=== PATIENT | female | born 1985 | race Caucasian/White ===

== ENCOUNTER 2019-03-16 02:40 | Inpatient (IN) | payer BC ==
[2019-03-16] MEDS ORDERED: Ondansetron INJ* 2 MG/ML VIAL ONE ×2 (02:46→04:48)
--- NOTE | 2019-03-16 02:46 | ED ---
Adult Trauma - HPI Summary HPI Summary: A 33 y/o F brought in by ambulance presents to ED with multiple lacs to bilateral wrists onset 0 yesterday as suicide attempt. Patient additionally took 15 Excedrin migraine pills at 2030 yesterday. Patient called 911 at 0130 this date. She cut her wrists with a clean double-sided razorblade. She was leaning on the wall and laid down. She's unsure if she had LOC or simply got sleepy. Her depression has worsened since October, and worsened more so this week. She is not sleeping well, is tired. She does not see a counselor. Her last tetanus was in 2010 or 2011. Patient is R-hand dominant. Moderate ETOH drinker, denies ETOH yesterday or tonight. [facility]: 03/07/19. PMHx: generalized anxiety and depression. Denies DM. Per EMS: Patient may have lost 1.5-2 L of blood. - History of Current Complaint Stated Complaint: "941/SI" PER POLICE Hx Obtained From: Patient, EMS Hx Last Menstrual Period: 08/02/18 Mechanism of Injury: Incised Loss of Consciousness: unsure Onset/Duration: Started Hours Ago, Traumatic, Still Present Onset of Pain: Immediate, Prior to Arrival Onset Severity: Severe Current Severity: Severe Location: Extremities - bilat UE Associated Signs & Symptoms: Positive: Significant Blood Loss, Other: - pos: suicide attempt, sleeping disturbance, fatigue - Allergy/Home Medications Allergies/Adverse Reactions: Allergies Allergy/AdvReac Type Severity Reaction Status Date / Time cefaclor [From [facility]] Allergy Hives Verified 08/02/18 07:44 Home Medications: Home Medications Ferrous Gluconate 27 mg PO DAILY 03/16/19 [History Confirmed 03/16/19] Probiotic 1 cap PO DAILY WITH MEAL 03/16/19 [History Confirmed 03/16/19] PMH/Surg Hx/FS Hx/Imm Hx Previously Healthy: No Endocrine/Hematology History: Denies: Hx Diabetes Psychiatric History: Reports: Hx Anxiety, Hx Depression - Surgical History Surgery Procedure, Year, and Place: wisdom tooth removal Infectious Disease History: Reports: History Other Infectious Disease - HSV - Family History Known Family History: Positive: Diabetes - Social History Occupation: Employed Full-time Lives: Alone Alcohol Use: Occasionally Hx Substance Use: No Substance Use Type: Reports: None Hx Tobacco Use: Yes Smoking Status (MU): Former Smoker Review of Systems Positive: Fatigue Positive: Other - pos: sig blood loss Skin: Other - pos: lacs to bilat UE Psychological: Other - pos: SI, sleep disturbances All Other Systems Reviewed And Are Negative: Yes Physical Exam - Summary Physical Exam Summary: Appearance: Well appearing, no pain distress Skin: warm, dry, reflects adequate perfusion. Dorsal L forearm has a 4 cm lac. There is a 1.5 cm lac on radial L wrist. There is a 3 cm lac on volar proximal L forearm. Mid-R forearm has a 4 cm lac and the R radial wrist has a 1.7 cm. lac. Head/face: normal Eyes: EOMI, DEVORAH ENT: mucous membranes moist Neck: supple, non-tender Respiratory: CTA, breath sounds present Cardiovascular: RRR, pulses symmetrical Abdomen: non-tender, soft Bowel Sounds: present Musculoskeletal: normal, strength/ROM intact. Intact to light touch and moving 2 -point discrimination on R and L hands. Neuro: normal, sensory motor intact, A&Ox3 Triage Information Reviewed: Yes Vital Signs Reviewed: Yes Procedures - Procedure Summary Procedure Summary: LUE Laceration Repairs: Lido 1% with epi used. L volar forearm linear lac approx 3 cm 4 gerhard. L radial wrist linear lac approx 1.5 cm 5 gerhard. L dorsal forearm linear lac approx 4 cm 6 gerhard. No deeper structures were involved. Sterile dressings applied. RUE Laceration Repairs: Lido 1% with epi used. R mid-forearm linear lac approx 4 cm 5 gerhard. R radial wrist linear lac approx 1.7 cm 4 gerhard. No deeper structures were involved. Sterile dressings applied. Diagnostics - Laboratory Result Diagrams: 03/16/19 03:06 03/16/19 03:06 Lab Statement: Any lab studies that have been ordered have been reviewed, and results considered in the medical decision making process. - EKG 03:29 Cardiac Rate: NL - 88 bpm EKG Rhythm: Sinus Rhythm Summary of EKG Findings: Normal axis, nml interval, nml ST. Adult Trauma Course/Dx - Course Course Of Treatment: Nurse's notes reviewed. 04:10: Per poison control: Levels are non-toxic and they have no further recommendations. Patient's levels for Tylenol, salicylates are nontoxic. Her lacerations were cleaned and repaired. She was given IV clindamycin for the wounds. Her tetanus was updated. Patient is medically clear for [facility] at 04:12. Per escalator attendant: Per Dr. Solorio, psych, patient will be a voluntary admission. Dx: depression, suicide attempt. Assessment/Plan: Recommended to continue clindamycin 300 mg 3 times daily for total of 7 days. Gerhard to come out in 10 days' time. Recommend to mental health to recheck a CBC at midday today or Monday morning. - Diagnoses Differential Diagnosis/HQI/PQRI: Positive: Other - Tendon laceration, infected wounds, hypertension, blood loss anemia Provider Diagnoses: Depression, Suicidal ideation, Misuse of [id number] medications, Multiple lacerations - Critical Care Time Critical Care Time: 30-74 min - Critical care time is exclusive of separately billable procedures Discharge - Sign-Out/Discharge Documenting (check all that apply): Patient Departure - U Patient Received Moderate/Deep Sedation with Procedure: No - Discharge Plan Condition: Fair Disposition: PSYCHIATRIC FACILITY-OTHER Referrals: Dayami Rahman MD [Medical Doctor] - - Billing Disposition and Condition Condition: FAIR Disposition: Psychiatric Facility Other - Attestation Statements Document Initiated by Scribe: Yes Documenting Scribe: Kamari Dooley Provider For Whom Jodie is Documenting (Include Credential): Dr. Jose Martin Norwood MD Scribe Attestation: Kamair Maldonado, scribed for Dr. Jose Martin Norwood MD on 03/16/19 at 0612. Scribe Documentation Reviewed: Yes Provider Attestation: The documentation as recorded by the Kamari rodriguez accurately reflects the service I personally performed and the decisions made by me, Dr. Jose Martin Norwood MD Status of Scribe Document: Viewed
[2019-03-16] MEDS ORDERED: Lidocaine 1% MPF wEPI 200,000* 30 ML SDV INJ ONE (02:53)
[2019-03-16] MEDS ORDERED: Tetan/Diph/Pertus SYR(Tdap)* 0.5 ML SYR(BOOSTRIX) use SYR IM ONE (02:53)
[2019-03-16] MEDS ORDERED: Clindamycin 600 MG/D5W BAG(*) 600 MG/50 ML BAG IV ONE (02:53)
[2019-03-16 03:13] LABS: ABS Lymphocytes 0.9 10^3/ul (1.0-4.8); ABS Monocytes 0.3 10^3/ul (0-0.8); ABS Neutrophils 10.1 10^3/ul (1.5-7.7); Hematocrit 36 % (35-47); Hemoglobin 11.8 g/dL (12.0-16.0); Lymphocyte % 7.6 %; Mean Corpuscular HGB Conc 33 g/dL (31-36); Mean Corpuscular Hemoglobin 29 pg (27-31); Mean Corpuscular Volume 88 fL (80-97); Mean Platelet Volume 8.6 fL (7.4-10.4); Platelet Count 243 10^3/uL (150-450); Red Blood Count 4.09 10^6 /uL (3.70-4.87); Red Cell Distribution Width 12 % (10-15); White Blood Count 11.2 10^3/uL (3.5-10.8)
[2019-03-16 03:28] LABS: ALT 11 U/L (7-52); AST 15 U/L (13-39); Albumin/Globulin Ratio 1.8 (1-3); Alkaline Phosphatase 26 U/L (34-104); Anion Gap 12 mmol/L (2-11); BUN/Creatinine Ratio 10.3 (8-20); Blood Urea Nitrogen 7 mg/dL (6-24); CO2 Carbon Dioxide 20 mmol/L (22-32); Calcium 7.9 mg/dL (8.6-10.3); Chloride 104 mmol/L (101-111); EGFR African American 119.8 (>60); Globulin 2.2 g/dL (2-4); Glucose 137 mg/dL (70-100); Potassium 3.3 mmol/L (3.5-5.0); Sodium 136 mmol/L (135-145); Total Protein 6.2 g/dL (6.4-8.9)
[2019-03-16 03:35] LABS: HCG Pregnancy < 0.60 mIU/mL
[2019-03-16 03:47] LABS: Acetaminophen 43 mcg/mL; Alcohol < 10 mg/dL (<10)
--- OUTSIDE RECORDS SUMMARY | 2019-03-16 03:57 | XMS REPORT | Continuity of Care Document ---
:1985 External Reference #:[id number] Author Name Betsy Santos NP Address [address] [place] [address] Care Team Providers Name Role Phone Hailee Rodriguez M.D. Care Team Information Collection Administrator Unavailable Hailee Rodriguez M.D. Primary Care Physician Unavailable Payers Date Identification Numbers Payment Provider Subscriber Policy Number: [id number] [place] Plan Betsy Ortega PayID: [id number] [address] [place] [address] Advance Directives Description No Information Available Problems Active Problems Provider Date Bipolar disorder Hailee Rodriguez M.D. Onset: 10/13/2014 Family History Date Family Member(s) Observation Comments Father Hypertension Onset: Father 64 (09/26/2018) Father Hypercholesterolemia Father Melanoma Mother Colitis Mother 62 Mother Skin Cancer pre-cancerous Siblings 1 First Sister Hypertension First Sister 36 First Sister Hypercholesterolemia First Sister prediabetis Paternal Grandfather due to Diabetes () - 89 yo Paternal Grandfather due to Hypertension () Paternal Grandfather due to stomach cancer () Paternal Grandmother Alzheimer's Disease Paternal Grandmother 82 Maternal Grandfather Arthritis Maternal Grandfather 93 Maternal Grandfather heart problems Maternal Grandmother due to Alzheimer's () - 87 yo Disease Social History Type Date Description Comments Sex Unknown Marital Status Legal Status: Never in long distance relationship Occupation Works in [employer] at [employer] No history of abuse Cigarette Use Uses an E cigarette almost off ETOH Use Occasionally consumes alcohol Recreational Drug Use Denies Drug Use Tobacco Use Start: Unknown Patient is a former still with occ e End: Unknown smoker cigarrette Exercise Type/Frequency Exercises regularly walking Sun Exposure Minimum amount of sun exposure Seat Belt/Car Seat Always uses seat belt Allergies, Adverse Reactions, Alerts Active Allergies Reaction Severity Comments Date Ceclor severe hives 07/26/2013 Augmentin hives 07/26/2013 Medications Active Medications SIG Qnty Indications Ordering Date Provider Clindamycin insert one 80gm N76.0 Betsy Cosby 02/19/2019 Phosphate applicatorful DILLAN Santos 2% Cream vaginally every night for 6 consectutive nights Fluconazole one tab by mouth 2tabs N76.0 Betsy Cosby 02/19/2019 150mg once, may repeat in DILLAN Santos Tablets five days Valacyclovir HCL 1 by mouth every day 90tabs Betsy Cosby DILLAN Santos 500mg Tablets Fluticasone 2 sprays each 16gm Betsy Cosby Propionate nostril every night DILLAN Santos 50mcg/Act at bedtime Suspension Azelastine HCL 1-2 sprays each 30ml Betsy Cosby (Nasal) nostril twice a day DILLAN Santos 137mcg/[place] Solution Excedrin Migraine 2 tablets every 8 Unknown hours as needed for Tablets headache Ibuprofen 200 2 by mouth every 12 Unknown 200mg hours as needed Tablets Multivitamin Gummies 1 by mouth every day Unknown Womens Chewtabs History Medications Acetaminophen-Codeine #3 take one or 2 as 20tabs J11.89 Betsy Cosby 2018 - 300-30mg one dose at DILLAN Santos 02/19/2019 Tablets bedtime. Benzonatate take one by mouth 30caps J11.89 Betsy Cosby 11/07/2018 - 200mg Capsules 3 times daily as DILLAN Santos 02/19/2019 needed for cough Tizanidine HCL take one or two 30caps M26.602 Betsy Cosby 09/26/2018 - 2mg Capsules by mouth three DILLAN Santos 02/19/2019 times daily as needed for pain Azithromycin 2 tabs today, 6tabs 461.9 Hailee Rodriguez, 05/25/2015 - 250mg Tablets then 1 tab daily M.D. 06/03/2015 for next 4 days Metronidazole 1 po bid x 7 14tabs 616.10 Angie 01/28/2015 - 500mg Tablets days Melanie, 02/04/2015 Afnp-C Fluconazole 1 by mouth ; february 2tabs 616.10 Angie 01/28/2015 - 150mg Tablets repeat in 5-7 Melanie, 02/04/2015 days Afnp-C No Active Medications Unknown 12/30/2014 - 12/30/2014 Nasonex 2 sprays each 1units 381.81 Milena 12/30/2014 - 50mcg/Act Suspension nostril every day [facility], 09/25/2018 Afnp-C Excuse excuse 10/21/14 079.99 Hailee Rodriguez, 10/22/2014 - until fever free M.D. 12/29/2014 x 24hours No Active Medications Unknown 10/13/2014 - 10/22/2014 Metronidazole 1 po bid x 7 14tabs Anh Ackerman, 09/15/2014 - 500mg Tablets days BUCK SWAMPER 10/13/2014 Fluconazole 1 po x 1 1tabs Anh Ackerman, 09/15/2014 - 150mg Tablets BUCK SWAMPER 09/16/2014 No Active Medications Unknown 05/13/2014 - 09/15/2014 Metronidazole 1 po bid x 7 14tabs Anh Ackerman, 05/06/2014 - 500mg Tablets days BUCK SWAMPER 05/13/2014 Fluconazole 1 po today and 2tabs Anh Ackerman, 05/06/2014 - 150mg Tablets repeat in a week BUCK SWAMPER 05/13/2014 No Active Medications Unknown 05/03/2014 - 05/06/2014 Metrogel-Vaginal 1 applicatorful 70gm Anh Ackerman, 04/28/2014 - 0.75% Gel pv hs x 5 days BUCK SWAMPER 05/03/2014 Nystatin/Triamcinolone apply to affected 30gm 616.10 Anh Ackerman, 2013 - area sparingly BUCK SWAMPER 04/30/2014 146134-9.1Unit/GM-% Cream bid prn Fluconazole 1 po x 1 1tabs 616.10 Anh Ackerman, 04/23/2014 - 150mg Tablets BUCK SWAMPER 04/24/2014 No Active Medications Unknown 02/19/2014 - 02/19/2014 Physical Therapy evaluate and 724.1 Anh Ackerman, 02/19/2014 - treat neck and BUCK SWAMPER 04/07/2014 thoracic back pain Orphenadrine Citrate ER 1 po bid prn for 20tabs 724.1 Anh Ackerman, 2013 - 100mg spasm BUCK SWAMPER 04/07/2014 Tablets ER 12HR Abilify 1/2 po qhs 30tabs Unknown - 5mg Tablets 02/19/2014 Dexamethasone Sodium 3-5 drops left Unknown - Phosphate/Sodium Chloride ear prn 02/19/2019 0.1 Solution Tretinoin apply every at Unknown - 0.05% Cream bedtime to 02/19/2019 affected area Metronidazole apply nightly to Unknown - 1% Gel face as directed. 02/19/2019 Immunizations CPT Code Status Date Vaccine Lot # [id number] Given 07/20/2018 Influenza Vac, Quadriv[place], [place] [id number] Given 10/13/2014 Influenza Vac, Quadrivalent, Slit Virus, Im [id number] Vital Signs Date Vital Result Comment 02/19/2019 9:19am BP Systolic 118 mmHg BP Diastolic 78 mmHg Heart Rate 76 /min Body Temperature 98.0 F Respiratory Rate 16 /min Weight 153.00 lb 11/07/2018 1:49pm BP Systolic 118 mmHg BP Diastolic 68 mmHg Heart Rate 80 /min Body Temperature 99.8 F Respiratory Rate 20 /min Weight 154.00 lb 09/26/2018 6:27pm BP Systolic 120 mmHg BP Diastolic 86 mmHg Heart Rate 84 /min Body Temperature 98.6 F Height 65 inches 5'5" Weight 154.00 lb BMI (Body Mass Index) 25.6 kg/m2 06/03/2015 8:10am BP Systolic 110 mmHg BP Diastolic 68 mmHg Heart Rate 68 /min Body Temperature 98.1 F Height 65 inches 5'5" Weight 149.00 lb BMI (Body Mass Index) 24.8 kg/m2 05/25/2015 10:37am BP Systolic 120 mmHg BP Diastolic 74 mmHg Heart Rate 84 /min Body Temperature 98.5 F Respiratory Rate 18 /min O2 % BldC Oximetry 96 % Height 65 inches 5'5" Weight 148.00 lb BMI (Body Mass Index) 24.6 kg/m2 02/24/2015 3:13pm BP Systolic 122 mmHg BP Diastolic 68 mmHg Heart Rate 62 /min Body Temperature 97.8 F Respiratory Rate 16 /min Height 65 inches 5'5" Weight 143.00 lb BMI (Body Mass Index) 23.8 kg/m2 01/28/2015 9:27am BP Systolic 120 mmHg BP Diastolic 82 mmHg Heart Rate 64 /min Body Temperature 98.6 F Respiratory Rate 16 /min Height 65 inches 5'5" Weight 144.12 lb BMI (Body Mass Index) 24.0 kg/m2 12/30/2014 2:09pm BP Systolic 112 mmHg BP Diastolic 68 mmHg Heart Rate 72 /min Body Temperature 97.5 F Height 65 inches 5'5" Weight 144.50 lb BMI (Body Mass Index) 24.0 kg/m2 10/22/2014 10:43am BP Systolic 118 mmHg BP Diastolic 60 mmHg Heart Rate 84 /min Body Temperature 100.0 F Respiratory Rate 16 /min Height 65 inches 5'5" 10/13/2014 1:45pm BP Systolic 110 mmHg BP Diastolic 66 mmHg Heart Rate 68 /min Body Temperature 97.2 F Respiratory Rate 16 /min Height 65 inches 5'5" Weight 145.00 lb BMI (Body Mass Index) 24.1 kg/m2 09/11/2014 8:10am BP Systolic 100 mmHg BP Diastolic 60 mmHg Heart Rate 68 /min Body Temperature 99.1 F Respiratory Rate 16 /min Height 65 inches 5'5" Weight 142.12 lb BMI (Body Mass Index) 23.6 kg/m2 05/20/2014 4:18pm BP Systolic 114 mmHg BP Diastolic 82 mmHg Heart Rate 84 /min Body Temperature 97.5 F Respiratory Rate 16 /min Height 65 inches 5'5" Weight 136.00 lb BMI (Body Mass Index) 22.6 kg/m2 04/23/2014 4:07pm BP Systolic 110 mmHg BP Diastolic 68 mmHg Heart Rate 80 /min Body Temperature 97.5 F Respiratory Rate 16 /min Height 65 inches 5'5" Weight 135.00 lb BMI (Body Mass Index) 22.5 kg/m2 04/07/2014 1:45pm BP Systolic 110 mmHg BP Diastolic 70 mmHg Heart Rate 80 /min Body Temperature 99.3 F Respiratory Rate 16 /min Height 65 inches 5'5" Weight 136.00 lb BMI (Body Mass Index) 22.6 kg/m2 02/19/2014 12:54pm BP Systolic 106 mmHg BP Diastolic 64 mmHg Heart Rate 66 /min Body Temperature 98.9 F Respiratory Rate 16 /min Height 65 inches 5'5" Weight 137.12 lb BMI (Body Mass Index) 22.8 kg/m2 11/25/2013 2:12pm BP Systolic 120 mmHg BP Diastolic 70 mmHg Heart Rate 80 /min Body Temperature 99.0 F Respiratory Rate 16 /min Height 65 inches 5'5" Weight 139.00 lb BMI (Body Mass Index) 23.1 kg/m2 07/26/2013 8:03am BP Systolic 122 mmHg BP Diastolic 70 mmHg Heart Rate 64 /min Body Temperature 97.9 F Respiratory Rate 16 /min Height 65 inches 5'5" Weight 136.00 lb BMI (Body Mass Index) 22.6 kg/m2 Results Test Date Facility Test Result H/L Range Note Comp. Metabolic 06/03/2015 [facility] Glucose, Serum 89 mg/dL 65-99 1 Panel (14) [address] [place] [address] (607)- - BUN 7 mg/dL 6-20 Creatinine, Serum 0.64 mg/dL 0.57-1.00 eGFR If NonAfricn Am 120 mL/min/1.73 >59 eGFR If Africn Am 138 mL/min/1.73 >59 BUN/Creatinine Ratio 11 8-20 Sodium, Serum 142 mmol/L 134-144 Potassium, Serum 4.7 mmol/L 3.5-5.2 Chloride, Serum 102 mmol/L 97-108 Carbon Dioxide, Total 24 mmol/L 18-29 Calcium, Serum 9.1 mg/dL 8.7-10.2 Protein, Total, Serum 7.2 g/dL 6.0-8.5 Albumin, Serum 4.8 g/dL 3.5-5.5 Globulin, Total 2.4 g/dL 1.5-4.5 A/G Ratio 2.0 1.1-2.5 Bilirubin, Total 0.7 mg/dL 0.0-1.2 Alkaline Phosphatase, S 34 IU/L Low 39-117 Ast (Sgot) 24 IU/L 0-40 Alt (SGPT) 17 IU/L 0-32 CBC With 06/03/2015 [facility] WBC 5.7 x10E3/uL 3.4-10.8 Differential/Platelet [address] [place] [address] (604)- - RBC 4.90 x10E6/uL 3.77-5.28 Hemoglobin 14.1 g/dL 11.1-15.9 Hematocrit 43.2 % 34.0-46.6 MCV 88 fL 79-97 MCH 28.8 pg 26.6-33.0 MCHC 32.6 g/dL 31.5-35.7 RDW 13.3 % 12.3-15.4 Platelets 296 x10E3/uL 150-379 Neutrophils 55 % Lymphs 35 % Monocytes 7 % Eos 2 % Basos 1 % Immature Cells DNR Neutrophils (Absolute) 3.1 x10E3/uL 1.4-7.0 Lymphs (Absolute) 2.0 x10E3/uL 0.7-3.1 Monocytes(Absolute) 0.4 x10E3/uL 0.1-0.9 Eos (Absolute) 0.1 x10E3/uL 0.0-0.4 Baso (Absolute) 0.0 x10E3/uL 0.0-0.2 Immature Granulocytes 0 % Immature Grans (Abs) 0.0 x10E3/uL 0.0-0.1 NRBC DNR Hematology Comments: DNR Urinalysis No 06/03/2015 [facility] Specific 1.016 1.005-1.[address] [place] [address] [place] [address] [phone] - pH 6.0 5.0-7.5 Urine-Color Yellow Yellow Appearance Clear Clear WBC Esterase Negative Negative Protein Negative Negative/Trace Glucose Negative Negative Glucose Reflex DNR Ketones Negative Negative Occult Blood Negative Negative Bilirubin Negative Negative Urobilinogen,Semi-Qn 0.2 EU/dL 0.0-1.9 Nitrite, Urine Negative Negative Hemoglobin A1c 06/03/2015 [facility] Hemoglobin A1c 5.5 % 4.8-5.[address] [place] [phone])- - Laboratory test 06/03/2015 [facility] Vitamin D, 40.4 ng/mL 30.0-100.0 [address] [place] [address] [address] [address] [phone] - Vaginitis Dna 01/28/2015 [facility] Screen NEGATIVE Affirm 28 [facility] [place] [address] Vaginalis Dna [phone] Screen Gardnerella Vaginalis Dna POSITIVE Screen Dinah Species Dna NEGATIVE Laboratory test 01/28/2015 [facility] Wet Prep see comment 4 finding ([phone])- - (Fma,CMC,CX) Influenza A&B-fma 10/22/2014 [facility] [place] Influenza A neg (607)- - Influenza B neg CBC 10/13/2014 [facility] WBC 6.9 x10E3/uL 4.3-10.9 5 [address] [place] [address] [phone] RBC 4.75 x10E6/uL 3.80-5.30 Hemoglobin 13.4 g/dL 11.8-15.8 Hematocrit 42.3 % 35.0-47.0 MCV 89.1 fl 82.0-98.0 MCH 28.2 pg 27.5-33.5 MCHC 31.7 g/dL Low 32.0-36.0 RDW 12.7 % 11.5-14.5 Platelet Count 309 x10E3/uL 130-400 MPV 10.7 fl 8.6-12.6 Segmented Neutrophils 61.1 % 44.0-74.0 Lymphocytes 31.1 % 15.0-45.0 Monocytes 6.5 % 2.0-13.0 Eosinophils 0.9 % 0.0-6.0 Basophils 0.4 % 0.0-2.0 Neutrophil Absolute 4.2 x10E3/uL 1.4-7.0 Lymphocytes Absolute 2.1 x10E3/uL 1.0-3.4 Monocyte Absolute 0.4 x10E3/uL 0.2-1.0 Eosinophil Absolute 0.1 x10E3/uL 0.0-0.5 Basophil Absolute 0.0 x10E3/uL 0.0-0.2 Comprehensive Metabolic 10/13/2014 [facility] Glucose 88 mg/dL 70-100 [address] [place] [address] [phone] BUN 9 mg/dL 4-18 Creatinine, Serum 0.62 mg/dL 0.50-1.10 Sodium 137 mmol/L 136-146 Potassium 4.5 mmol/L 3.5-5.3 Chloride 103 mmol/L 98-110 Carbon Dioxide 28 mmol/L 20-32 Albumin 4.6 g/dL 3.5-4.7 Protein, Total 7.7 g/dL 6.4-8.3 Calcium 9.4 mg/dL 8.4-10.4 Alkaline Phosphatase 38 U/L 10-118 Sgot (Ast) 24 U/L 3-40 SGPT (Alt) 30 U/L 7-50 Bilirubin, Total 1.30 mg/dL High 0.30-1.20 Lipid Panel 10/13/2014 [facility] Cholesterol, Total 171 mg/dL <[address] [place] [address] [phone] Triglycerides 41 mg/dL <150 HDL Cholesterol 81 mg/dL High 40-60 Chol/HDL Cholesterol 2.1 6 LDL Cholesterol, Calc. 82 mg/dL 7 LDL/HDL Cholesterol 1.0 8 Laboratory 10/13/2014 [facility] TSH (Thyrotropin) 1.530 0.350-5.500 test finding [address] [place] [address] uIU/[place] [address] [phone] Vitamin D, 25 Oh 20.5 ng/mL Low 30.0-100.0 9 Egfr (Calculated) 10/13/2014 [facility] Estimated GFR (CALCULATED) [address] [place] [address] [phone] Egfr >60 10 Egfr, -Algerian >60 11 Bili T,D+I 10/13/2014 [facility] Bilirubin, 0.50 mg/dL High 0.00-0.40 Group 28 [facility] [address] [phone] Bilirubin, Indirect 0.80 mg/dL 0.10-1.10 Vaginitis Dna 09/11/2014 [facility] Screen Trichomonas NEGATIVE Affirm [address] [place] [address] Vaginalis Dna [place], [place] [id number] [phone] Screen Gardnerella Vaginalis Dna POSITIVE Screen Dinah Species Dna NEGATIVE Vaginitis Dna 05/20/2014 [facility] Screen Trichomonas NEGATIVE 12 Affirm 28 [facility] [place] [address] [phone] Screen Gardnerella Vaginalis Dna NEGATIVE Screen Dinah Species Dna NEGATIVE Chlamydia/GC Aptima 05/20/2014 [facility] Chlamydia/GC, Lucille SEE BELOW Endocerv/Vag [address] [place] [address] [phone] Source- Endocerv/Vag Swab * Chlamydia Trachomatis,Lucille Negative Negative 13 Neisseria Gonorrhoeae,Lucille Negative Negative 14 Please Note: SEE BELOW 15 Laboratory test 05/20/2014 [facility] RPR NON-REACTIVE Non-Reactive finding [address] [place] [address] [phone] HSV 1 And 2 05/20/2014 [facility] HSV 1 <0.91 index 0.00-0.90 16 Specific AB Igg 28 [facility] IgG, [place] [address] Type [phone] Spec HSV 2 IgG, Type Spec <0.91 index 0.00-0.90 17 HSV Igm I/II 05/20/2014 [facility] HSV, IgM I/II <0.91 0.00-0.90 18 Combination 28 [facility] Combination Ratio [place], [place] [id number] [phone] Hep C Abs 05/20/2014 [facility] Hep C Antibody NON-REACT Non-Reactive 28 [facility] [place] [address] [phone] Hep C S/Co Ratio 0.0 0.0-0.7 Anti Viral AB 05/20/2014 [facility] HIV 1/O/2 <1.00 <1.00 19 Screen 28 [facility] [place] [address] [phone] HIV 1/O/2 Abs, Qual Non Reactive Non Reactive Vaginitis Dna 04/23/2014 [facility] Screen Trichomonas NEGATIVE Affirm 28 [facility] [place] [address] [phone] Screen Gardnerella Vaginalis Dna POSITIVE Screen Dinah Species Dna NEGATIVE Laboratory test finding 04/07/2014 [facility] Medicine Quickstrep NEG Negative (607)- - Throat - Beta Strep Fma NEG@48HRS Laboratory test 07/26/2013 [facility] Thin Prep SEE NOTE 20 finding 28 [facility] W/HPV(Lsil/WALESKA/Asc) [place], [place] [id number] [phone] Ua - Non Micro 07/26/2013 [facility] Appearance YELLOW (Fma) (607)- - Color CLEAR Glucose, Urine (Fma/CMC/CTX) NEG Bilirubin NEG Ketones NEG SP Grav <=1.005 Blood NEG PH 6.0 Protein NEG Urobil 0.2 Nitrite NEG Leukocytes (Fma/CMC/[facility]) NEG Vaginitis Dna 07/26/2013 [facility] Screen Trichomonas NEGATIVE 21 Affirm 28 [facility] [place] [address] [phone] Screen Gardnerella Vaginalis Dna NEGATIVE Screen Dinah Species Dna NEGATIVE Chlamydia/GC Aptima 07/26/2013 [facility] Chlamydia/GC, Lucille SEE BELOW [facility]/Vag [address] [place] [id number] [phone] Source- Endocerv/Vag Swab * Chlamydia Trachomatis,Lucille Negative Negative 22 Neisseria Gonorrhoeae,Lucille Negative Negative 23 Please Note: SEE BELOW 24 1 2 sst 2 Increased risk for diabetes: 5.7 - 6.4 Diabetes: >6.4 Glycemic control for adults with diabetes: <7.0 3 Vitamin D deficiency has been defined by the [place] of Medicine and an Endocrine Society practice guideline as a level of serum 25-OH vitamin D less than 20 ng/mL (1,2). The Endocrine Society went on to further define vitamin D insufficiency as a level between 21 and 29 ng/mL (2). 1. IOM ([place] of Medicine). 2010. Dietary reference intakes for calcium and D. Bhagat [place]: The National Academies Press. 2. Rafaela MF, Anna NO, Jessie HALL, et al. Evaluation, treatment, and prevention of vitamin D deficiency: an Endocrine Society clinical practice guideline. JCEM. 2010; 96(7):1911-30. 4 + clue cells w/ faint ELTON whiff ; neg yeast; no trich 5 FASTING; 1 lav; 2 sst 6 CHOL/HDL Risk Ratio Levels MALE FEMALE 1/2 X Average 3.4 3.3 Average 5.0 4.4 2 X Average 9.5 7.0 3 X Average 24.0 11.0 7 Optimal under 100 mg/dl Near or above Optimal 100 - 129 mg/dl Borderline High 130 - 159 mg/dl High 160 - 189 mg/dl Very High above 190 mg/dl 8 LDL/HDL Risk Ratio Levels MALE FEMALE 1/2 X Average 1.0 1.5 Average 3.6 3.2 2 X Average 6.3 5.0 3 X Average 8.0 6.1 9 Vitamin D deficiency has been defined by the [place] of Medicine and an Endocrine Society practice guideline as a level of serum 25-OH vitamin D less than 20 ng/mL (1,2). The Endocrine Society went on to further define vitamin D insufficiency as a level between 21 and 29 ng/mL (2). 1. IOM ([place] of [employer]). 2010. Dietary reference intakes for calcium and D. Bhagat [place]: The National Academies Press. 2. Raafela MF, Anna [place], Jessie HALL, et al. Evaluation, treatment, and prevention of vitamin D deficiency: an Endocrine Society clinical practice guideline. JCEM. 2010; 96(7):1911-30. 10 >59 mL/min/1.73m2 11 >59 mL/min/1.73m2 Note: Persistent reduction for 3 months or more in an eGFR <60 mL/min/1.73m2 defines CKD. Patients with eGFR values >=60 mL/min/1.73m2 may also have CKD if evidence of persistent proteinuria is present. Additional information may be found at www.kidney.org/professionals/kdoqi. 12 3 SSTS; 1 AFFIRM; 1 APTIMA 13 RN[facility] [place] [address] [facility] [phone] 14 RN[facility] [address] [phone] 15 Acceptable specimens for this test are male urethral swab, endocervical swab and liquid based pap specimens, vaginal swabs in APTIMA transports and first void urine. See online Directory of Services for test number for rectal and pharyngeal specimens. RN[facility] [place] [address] [facility] [id number] 16 Negative <0.91 Equivocal 0.91 - 1.09 Positive >1.09 Note: Negative indicates no antibodies detected to HSV-1. Equivocal may suggest early infection. If clinically appropriate, retest at later date. Positive indicates antibodies detected to HSV-1. 17 Negative <0.91 Equivocal 0.91 - 1.09 Positive >1.09 Note: Negative indicates no antibodies detected to HSV-2. Equivocal may suggest early infection. If clinically appropriate, retest at later date. Positive indicates antibodies detected to HSV-2. 18 Negative <0.91 Equivocal 0.91 - 1.09 Positive >1.09 19 Index Value: Specimen reactivity relative to the negative cutoff. 20 [employer] DEPARTMENT OF PATHOLOGY or Extension 2794 REHABILITATION SERVICES AIDE CYTOLOGY REPORT Patient: BETSY ORTEGA : 1985 AGE: 27 Y SEX: F Acct: [id number] Procedure Date: 07/26/2013 Date Received: 07/29/2013 Requesting Provider: ANH ACKERMAN NP Location: [facility] Case No. [id number] Requisition #: [id number] CYTOLOGIC INTERPRETATION: SPECIMEN ADEQUACY SATISFACTORY FOR EVALUATION, ENDOCERVICAL TRANSFORMATION ZONE COMPONENT PRESENT GENERAL CATEGORIZATION NEGATIVE FOR INTRAEPITHELIAL LESIONS OR MALIGNANCY RECOMMENDATIONS Refer to the corresponding web sites for 2012 updated general recommendation guidelines of U.S. preventive service task force for cervical cancer screening, and www.asccp.org//aomaxfafp2039. COMMENTS Thin Prep Pap tests are examined with an FDA approved location-guidance system. PATIENT DATA: SPECIMEN SUBMITTED: * * (HPVII) THIN PREP W/HPV (LSIL/ASC/WALESKA) * * ENDOCERVICAL RELEVANT HISTORY: LMP: 07/19/2013 Contraceptive: NONE Menarche: Y ADDITIONAL COPIES SENT TO: Screened/Rescreened Electronically Signed Sign Out Date/Time: by: by: SABINA LEPE, 07/29/2013 16:56 CT(ASCP) Note: The Pap smear is a screening test designed to aid in the detection of premalignant and malignant conditions of the uterine cervix. It is not a diagnostic procedure and should not be used as the sole means of detecting cervical cancer. Both false-positive and false-negative reports do occur. 00 UA Pap Smear performed at [facility] Dir: Vanessa Ng MD, [address] [facility] [address] 01 rivet passer [facility] [place] Dir: Farhat Reddy MD, [address] [facility] [address] 02 BN [facility] [place] Dir: Milton Arevalo MD, [address] [facility] [address] For inquiries regarding HPV test results, the physician may contact [facility]: [phone] . 21 1 APTIMA SWAB; 1 AFFIRM SWAB 22 [facility] [place] [address] [facility] [phone] 23 [facility] [place] [address] [facility] [phone] 24 Acceptable specimens for this test are male urethral swab, endocervical swab and liquid based pap specimens, vaginal swabs in APTIMA transports and first void urine. See online Directory of Services for test number for rectal and pharyngeal specimens. RN[facility] [place] [address] [facility] [phone] Procedures Date Code Description Status 05/25/2015 58496 Pulse Oximetry Completed Encounters Type Date Location Provider Dx Diagnosis Office Visit 11/07/2018 [facility] Betsy Cosby J11.89 Influenza due to 1:45p DILLAN Santos unidentified influenza virus w oth manifest Office Visit 09/26/2018 [facility] Office Betsy Cosby H92.02 Otalgia, left ear 6:45p DILLAN Santos M26.602 Left temporomandibular joint disorder, unspecified Office Visit 06/03/2015 8:00a [facility] Office Milena 780.79 Malaise And [place], Afnp-C Fatigue Other 268.9 Vitamin D Deficiency Unspec 296.80 Bipolar Disorder NOS V19.8 History Family Conditions Other Office Visit 05/25/2015 11:20a [facility] Hailee Rodriguez, 461.9 Sinusitis Acute Office M.D. Unspec Office Visit 02/24/2015 3:15p [facility] Milena 782.9 Skin & Integumentary Office [place], Tissue Other Afnp-C Symptoms Office Visit 01/28/2015 9:30a [facility] Angie 616.10 Vaginitis & Office Melanie, Vulvovaginitis Afnp-C Unspec Office Visit 12/30/2014 2:15p [facility] Milena 388.71 Otalgia Otogenic Office [place], Pain Afnp-C 381.81 Eustachian Tube Dysfunction Office Visit 10/22/2014 10:40a [facility] Office Hailee Rodriguez, 079.99 Viral Infection M.D. Unspec Office Visit 10/13/2014 1:50p [facility] Office Hailee Rodriguez, V70.0 Examination M.D. General Medical Routine AT Health Care Facility 296.80 Bipolar Disorder NOS 780.79 Malaise And Fatigue Other 381.81 Eustachian Tube Dysfunction v04.81 Need For Prophylactic Vaccination & Inoculation/Influenza Office Visit 09/11/2014 8:00a [facility] Office Anh 616.10 Vaginitis & Brown, BUCK SWAMPER Vulvovaginitis Unspec 611.71 Mastodynia Office Visit 05/20/2014 4:15p [facility] Anh 616.10 Vaginitis & Brown, BUCK SWAMPER Vulvovaginitis Unspec V69.2 Sexual Behavior High Risk Office Visit 04/23/2014 4:00p [facility] Office Anh 616.10 Vaginitis & Brown, BUCK SWAMPER Vulvovaginitis Unspec Office Visit 04/07/2014 2:00p Main Office Anh 465.9 URI Upper Brown, BUCK SWAMPER Respiratory Infections Acute Unspec Sites Office Visit 02/19/2014 1:00p Main Office Anh 724.1 Pain Thoracic Spine Brown, BUCK SWAMPER Office Visit 11/25/2013 2:00p Main Office Anh 465.9 URI Upper Brown, BUCK SWAMPER Respiratory Infections Acute Unspec Sites 782.9 Skin & Integumentary Tissue Other Symptoms Office Visit 07/26/2013 8:00a [facility] Office Anh Ackerman, V72.31 Routine Facility Engineer BUCK SWAMPER Examination 616.10 Vaginitis & Vulvovaginitis Unspec 296.80 Bipolar Disorder NOS V25.04 Brick Tester & Instruct In Natural Family Planning To Avoid Preg Plan of Treatment 02/19/2019 - Betsy Santos, NPN76.0 Acute vaginitisNew Medication: Clindamycin Phosphate 2 % - insert one applicatorful vaginally every night for 6 consectutive nightsFluconazole 150 mg - one tab by mouth once, may repeat in five daysNew Labs:Wet Prep (Fma,CMC,CX), Ordered: 02/19/19Comments:Call YAQUELIN if condition changes/worsens in any wayAllComments:1. Patient has been queried about patient's goals/preferences and functional/lifestyle goals at relevant visits. If relevant, describe: Has been discussed, noted above2. Treatment goals as explainedto the patient: see above3. Are there barriers to meeting treatment goals? Yes If Yes, please describe: Barriers include possible insurance limits, disease process, and difficulty with lifestyle changes4. Self -Management goals as described to the patient: Yes, see above As always, we strongly encourage a healthy diet and making physical activity a part of your every day life. If you have questions about how or where to start, please contact the office.
--- OUTSIDE RECORDS SUMMARY | 2019-03-16 03:57 | XMS REPORT | Continuity of Care Document ---
:1985 External Reference #:[id number] Author Name Betsy Santos NP Address [address] [place] [address] Care Team Providers Name Role Phone Hailee Rodriguez M.D. Care Team Information Behavioral Health Assistant Unavailable Hailee Rodriguez M.D. Primary Care Physician Unavailable Payers Date Identification Numbers Payment Provider Subscriber Policy Number: [id number] Sarah Ann Plan Betsy Ortega PayID: [id number] [address] [place] [address] Problems Active Problems Provider Date Bipolar disorder Hailee Rodriguez M.D. Onset: 10/13/2014 Family History Date Family Member(s) Observation Comments Father Hypertension Father 65 Father Hypercholesterolemia Father Melanoma Father Skin Cancer squamous cell in urethra Mother Colitis Mother 63 Mother Skin Cancer pre-cancerous Siblings 1 First Sister Hypertension First Sister 36 First Sister Hypercholesterolemia First Sister prediabetis Paternal Grandfather due to Diabetes () - 89 yo Paternal Grandfather due to Hypertension () Paternal Grandfather due to stomach cancer () Paternal Grandmother Alzheimer's Disease Paternal Grandmother 82 Maternal Grandfather Arthritis Maternal Grandfather 93 Maternal Grandfather heart problems Maternal Grandmother due to Alzheimer's Disease () - 87 yo Social History Type Date Description Comments Sex Unknown Marital Status Legal Status: Never in long distance relationship Occupation Works in [employer] at [employer] No history of abuse Cigarette Use Uses an E cigarette almost off ETOH Use Occasionally consumes alcohol Recreational Drug Use Denies Drug Use Tobacco Use Start: Unknown Patient is a former still with occ e End: Unknown smoker cigarrette Smoking Status Reviewed: 03/07/19 Patient is a former still with occ e smoker cigarrette Exercise Type/Frequency Exercises regularly walking Sun Exposure Minimum amount of sun exposure Seat Belt/Car Seat Always uses seat belt Allergies, Adverse Reactions, Alerts Active Allergies Reaction Severity Comments Date Ceclor severe hives 07/26/2013 Augmentin hives 07/26/2013 Medications Active Medications SIG Qnty Indications Ordering Provider Date Valacyclovir HCL 1 by mouth every 90tabs Betsy Cosby 500mg day DILLAN Santos Tablets Fluticasone 2 sprays each 16gm Betsy Cosby Propionate nostril every DILLAN Santos 50mcg/Act night at bedtime Suspension Azelastine HCL 1-2 sprays each 30ml Betsy Cosby (Nasal) nostril twice a DILLAN Santos 137mcg/[place] day Solution Excedrin Migraine 2 tablets every 8 Unknown hours as needed Tablets for headache Ibuprofen 200 2 by mouth every Unknown 200mg 12 hours as Tablets needed Multivitamin Gummies 1 by mouth every Unknown Womens day Chewtabs History Medications Clindamycin insert one 80gm N76.0 Betsy Cosby 02/19/2019 - Phosphate applicatorful DILLAN Santos 03/07/2019 2% Cream vaginally every night for 6 consectutive nights Fluconazole one tab by mouth 2tabs N76.0 Betsy Cosby 02/19/2019 - 150mg once, february repeat in TomDILLAN 03/07/2019 Tablets five days Acetaminophen-Codein take one or 2 as 20tabs J11.89 Betsy Cosby 11/07/2018 - e #3 one dose at TmoDILLAN 02/19/2019 300-30mg Tablets bedtime. Benzonatate take one by mouth 3 30caps J11.89 Betsy Cosby 11/07/2018 - 200mg times daily as DILLAN Santos 02/19/2019 Capsules needed for cough Tizanidine HCL take one or two by 30caps M26.602 Betsy Cosby 09/26/2018 - 2mg mouth three times DILLAN Santos 02/19/2019 Capsules daily as needed for pain Azithromycin 2 tabs today, then 6tabs 461.9 Hailee Rodriguez 05/25/2015 - 250mg 1 tab daily for M.D. 06/03/2015 Tablets next 4 days Metronidazole 1 po bid x 7 days 14tabs 616.10 Angie Navarro, 01/28/2015 - 500mg Afnp-C 02/04/2015 Tablets Fluconazole 1 by mouth ; february 2tabs 616.10 Angie Navarro, 01/28/2015 - 150mg repeat in 5-7 days Afnp-C 02/04/2015 Tablets No Active Unknown 12/30/2014 - Medications 12/30/2014 Nasonex 2 sprays each 1units 381.81 Milena 12/30/2014 - 50mcg/Act nostril every day [facility], 09/25/2018 Suspension Afnp-C Excuse excuse 10/21/14 079.99 Hailee Allison, 10/22/2014 - until fever free x M.D. 12/29/2014 24hours No Active Unknown 10/13/2014 - Medications 10/22/2014 Metronidazole 1 po bid x 7 days 14tabs Anh Ackerman, 09/15/2014 - 500mg FIRST AID DIRECTOR 10/13/2014 Tablets Fluconazole 1 po x 1 1tabs Anh Ackerman, 09/15/2014 - 150mg FIRST AID DIRECTOR 09/16/2014 Tablets No Active Unknown 05/13/2014 - Medications 09/15/2014 Metronidazole 1 po bid x 7 days 14tabs Anh Ackerman, 05/06/2014 - 500mg FIRST AID DIRECTOR 05/13/2014 Tablets Fluconazole 1 po today and 2tabs Anh Ackerman, 05/06/2014 - 150mg repeat in a week FIRST AID DIRECTOR 05/13/2014 Tablets No Active Unknown 05/03/2014 - Medications 05/06/2014 Metrogel-Vaginal 1 applicatorful pv 70gm Anh Ackerman, 04/28/2014 - hs x 5 days FIRST AID DIRECTOR 05/03/2014 0.75% Gel Nystatin/Triamcinolo apply to affected 30gm 616.10 Anh Ackerman, 2013 - ne area sparingly bid FIRST AID DIRECTOR 04/30/2014 prn 760518-0.1Unit/GM-% Cream Fluconazole 1 po x 1 1tabs 616.10 Anh Ackerman, 04/23/2014 - 150mg FIRST AID DIRECTOR 04/24/2014 Tablets No Active Unknown 02/19/2014 - Medications 02/19/2014 Physical Therapy evaluate and treat 724.1 Anh Ackerman, 02/19/2014 - neck and thoracic FIRST AID DIRECTOR 04/07/2014 back pain Orphenadrine Citrate 1 po bid prn for 20tabs 724.1 Anh Ackerman, 2013 - ER spasm FIRST AID DIRECTOR 04/07/2014 100mg Tablets ER 12HR Abilify 1/2 po qhs 30tabs Unknown - 5mg Tablets 02/19/2014 Dexamethasone Sodium 3-5 drops left ear Unknown - Phosphate/Sodium prn 02/19/2019 Chloride 0.1 Solution Tretinoin apply every at Unknown - 0.05% Cream bedtime to affected 02/19/2019 area Metronidazole apply nightly to Unknown - 1% Gel face as directed. 02/19/2019 Immunizations CPT Code Status Date Vaccine Lot # [id number] Given 07/20/2018 Influenza Vac, Quadriv[place], [place] [id number] Given 10/13/2014 Influenza Vac, Quadrivalent, Slit Virus, Im [id number] Vital Signs Date Vital Result Comment 03/07/2019 10:34am BP Systolic 112 mmHg BP Diastolic 68 mmHg Heart Rate 66 /min Body Temperature 99.0 F Respiratory Rate 16 /min Height 65 inches 5'5" Weight 155.00 lb BMI (Body Mass Index) 25.8 kg/m2 02/19/2019 9:19am BP Systolic 118 mmHg BP [...] Date Facility Test Result H/L Range Note Laboratory test 02/19/2019 [facility] Wet Prep no yeast finding (607)- - (Fma,CMC,CX) seen Urinalysis No 06/03/2015 [facility] Specific 1.016 1.005-1.03 1 Micro [address] [facility] [place] [address] [place] [address] (607)- - pH 6.0 5.0-7.5 Urine-Color Yellow Yellow Appearance Clear Clear WBC Esterase Negative Negative Protein Negative Negative/Trace Glucose Negative Negative Glucose Reflex DNR Ketones Negative Negative Occult Blood Negative Negative Bilirubin Negative Negative Urobilinogen,Semi-Qn 0.2 EU/dL 0.0-1.9 Nitrite, Urine Negative Negative Hemoglobin A1c 06/03/2015 [facility] Hemoglobin A1c 5.5 % 4.8-5.6 2 [address] [place] [address] (607)- - Laboratory test 06/03/2015 [facility] Vitamin D, 40.4 30.0-100.0 3 finding [address] [facility] 25-Hydroxy ng/[place] [address] (600)- - CBC With 06/03/2015 [facility] WBC 5.7 3.4-10.8 Differential/Plat [address] [facility] x10E3/[place] [address] (609)- - RBC 4.90 x10E6/uL 3.77-5.28 Hemoglobin 14.1 [...] x10E3/uL 0.0-0.1 NRBC DNR Hematology Comments: DNR Comp. Metabolic 06/03/2015 [facility] Glucose, Serum 89 mg/dL 65-99 Panel (15) [address] [place] [address] (147)- - BUN 7 mg/dL 6-20 Creatinine, Serum [...] IU/L 0-40 Alt (SGPT) 17 IU/L 0-32 Vaginitis Dna 01/28/2015 [facility] Screen Trichomonas NEGATIVE Affirm 28 [facility] [place] [address] [phone] Screen Gardnerella Vaginalis Dna POSITIVE Screen Dinah Species Dna NEGATIVE Laboratory test 01/28/2015 [facility] Wet Prep see comment 4 finding (607)- - (Fma,CMC,CX) Influenza A&B-fma 10/22/2014 [facility] Influenza A neg (607)- - Influenza B neg CBC 10/13/2014 [facility] WBC 6.9 x10E3/uL 4.3-10.9 5 28 [place] [address] [phone] RBC 4.75 x10E6/uL 3.80-5.30 Hemoglobin 13.4 g/dL [...] 10/13/2014 [facility] Glucose 88 mg/dL 70-100 [address] [place] [address] [phone] BUN 9 mg/dL 4-18 Creatinine, Serum 0.62 [...] 10/13/2014 [facility] Cholesterol, Total 171 mg/dL <[address] [place] [address] [phone] Triglycerides 41 mg/dL <150 HDL Cholesterol 81 mg/dL High 40-60 Chol/HDL Cholesterol 2.1 6 LDL Cholesterol, Calc. 82 mg/dL 7 LDL/HDL Cholesterol 1.0 8 Laboratory 10/13/2014 [facility] TSH (Thyrotropin) 1.530 0.350-5.500 test finding [address] [place] [address] uIU/[place] [address] [phone] Vitamin D, 25 Oh 20.5 ng/mL Low 30.0-100.0 9 Egfr (Calculated) 10/13/2014 [facility] Estimated GFR (CALCULATED) [address] [place] [address] [phone] Egfr >60 10 Egfr, -Cymro >60 11 Bili T,D+I 10/13/2014 [facility] Bilirubin, 0.50 mg/dL High 0.00-0.40 Group 28 [facility] [place] [place] [address] [phone] Bilirubin, Indirect 0.80 mg/dL 0.10-1.10 Vaginitis Dna 09/11/2014 [facility] Screen Trichomonas NEGATIVE Affirm [address] [place] [address] [place] [address] [phone] Screen Gardnerella Vaginalis Dna POSITIVE Screen Dinah Species Dna NEGATIVE HSV 1 And 2 05/20/2014 [facility] HSV 1 IgG, <0.91 index 0.00-0.90 12, 13 Specific AB 28 [facility] Type Spec Igg [place], [place] [id number] [phone] HSV 2 IgG, Type Spec <0.91 index 0.00-0.90 14 HSV Igm I/II 05/20/2014 [facility] HSV, IgM I/II <0.91 0.00-0.90 15 Combination 28 [facility] [place] [address] [phone] Hep C Abs 05/20/2014 [facility] Hep C Antibody NON-REACT Non-Reactive 28 [facility] [place] [address] [phone] Hep C S/Co Ratio 0.0 0.0-0.7 Anti Viral AB 05/20/2014 [facility] HIV 1/O/2 <1.00 <1.00 16 Screen 28 [facility] [place] [address] [phone] HIV 1/O/2 Abs, Qual Non Reactive Non Reactive Laboratory test 05/20/2014 [facility] RPR NON-REACTIVE Non-Reactive finding 28 [place] [address] [phone] Chlamydia/GC 05/20/2014 [facility] Chlamydi SEE BELOW Aptima 28 [facility] a/GC, Endocerv/[place] [address] Lucille [phone] Source- Endocerv/Vag Swab * Chlamydia Trachomatis,Lucille Negative Negative 17 Neisseria Gonorrhoeae,Lucille Negative Negative 18 Please Note: SEE BELOW 19 Vaginitis Dna 05/20/2014 [facility] Screen Trichomonas NEGATIVE Affirm 28 [facility] [place] [address] [phone] Screen Gardnerella Vaginalis Dna NEGATIVE Screen Dinah Species Dna NEGATIVE Vaginitis Dna 04/23/2014 [facility] Screen Trichomonas NEGATIVE Affirm 28 [facility] [place] [address] [phone] Screen Gardnerella Vaginalis Dna POSITIVE Screen Dinah Species Dna NEGATIVE Laboratory test finding 04/07/2014 [facility] Quickstrep NEG Negative (943)- - Throat - Beta Strep Fma NEG@48HRS Laboratory test 07/26/2013 [facility] Thin Prep SEE NOTE 20 finding 28 [facility] W/HPV(Lsil/WALESKA/Asc) [place] [address] [phone] Ua - Non Micro 07/26/2013 [facility] Appearance YELLOW (Fma) (607)- - Color CLEAR Glucose, Urine (Fma/CMC/CTX) NEG Bilirubin NEG Ketones NEG SP Grav <=1.005 Blood NEG PH 6.0 Protein NEG Urobil 0.2 Nitrite NEG Leukocytes (Fma/CMC/[facility]) NEG Vaginitis Dna 07/26/2013 [facility] Screen Trichomonas NEGATIVE 21 Affirm 28 [facility] [place] [address] [phone] Screen Gardnerella Vaginalis Dna NEGATIVE Screen Dinah Species Dna NEGATIVE Chlamydia/GC Aptima 07/26/2013 [facility] Chlamydia/GC, Lucille SEE BELOW Endocerv/Vag [address] [place] [address] [phone] Source- Endocerv/Vag Swab * Chlamydia Trachomatis,Lucille Negative Negative 22 Neisseria Gonorrhoeae,Lucille Negative Negative 23 Please Note: SEE BELOW 24 1 2 sst 2 Increased risk for diabetes: 5.7 - 6.4 Diabetes: >6.4 Glycemic control for adults with diabetes: <7.0 3 Vitamin D deficiency has been defined by the [place] [employer] and an Endocrine Society practice guideline as a level of serum 25-OH vitamin D less than 20 ng/mL (1,2). The Endocrine Society went on to further define vitamin D insufficiency as a level between 21 and 29 ng/mL (2). 1. IOM ([place] of [employer]). 2010. Dietary reference intakes for calcium and D. Bhagat [place]: The National Academies Press. 2. Rafaela MF, Anna [place], Jessie HALL, et al. [...] D deficiency has been defined by the [place] [employer] and an Endocrine Society practice guideline as a level of serum 25-OH vitamin D less than 20 ng/mL (1,2). The Endocrine Society went on to further define vitamin D insufficiency as a level between 21 and 29 ng/mL (2). 1. IOM ([place] of [employer]). 2010. Dietary reference intakes for calcium and D. Bh[place]at [place]: The National AcademBeMyGuest Press. 2. Rafaela MF, Anna NO, Jessie [...] 3 SSTS; 1 AFFIRM; 1 APTIMA 13 Negative <0.91 Equivocal 0.91 - 1.09 Positive >1.09 Note: Negative indicates no antibodies detected to HSV-1. Equivocal may suggest early infection. If clinically appropriate, retest at later date. Positive indicates antibodies detected to HSV-1. 14 Negative <0.91 Equivocal 0.91 - 1.09 Positive >1.09 Note: Negative indicates no antibodies detected to HSV-2. Equivocal may suggest early infection. If clinically appropriate, retest at later date. Positive indicates antibodies detected to HSV-2. 15 Negative <0.91 Equivocal 0.91 - 1.09 Positive >1.09 16 Index Value: Specimen reactivity relative to the negative cutoff. 17 [facility] [place] [address] [facility] [phone] 18 [facility] [place] [address] [facility] [phone] 19 Acceptable specimens for this test are male urethral swab, endocervical swab and liquid based pap specimens, vaginal swabs in APTIMA transports and first void urine. See online Directory of Services for test number for rectal and pharyngeal specimens. RN[facility] [address] [id number] 20 [place]. DEPARTMENT OF PATHOLOGY or Extension 7182 SENIOR BENEFITS ANALYST CYTOLOGY REPORT Patient: BETSY ORTEGA : 1985 AGE: 27 Y SEX: F Acct: [id number] Procedure Date: 07/26/2013 Date Received: 07/29/2013 Requesting Provider: ANH ACKERMAN NP Location: [facility] Case No. [id number] Requisition #: [id number] CYTOLOGIC INTERPRETATION: SPECIMEN ADEQUACY SATISFACTORY FOR EVALUATION, ENDOCERVICAL TRANSFORMATION ZONE COMPONENT PRESENT GENERAL CATEGORIZATION NEGATIVE FOR INTRAEPITHELIAL LESIONS OR MALIGNANCY RECOMMENDATIONS Refer to the corresponding web sites for 2012 updated general recommendation guidelines of U.S. preventive service task force for cervical cancer screening, and www.asccp.org//prdvzshds0582. COMMENTS Thin Prep Pap tests are examined [...] occur. 00 UA Pap Smear performed at [facility] Dir: Vanessa Ng MD, [address] [facility] [address] 01 metal dresser [facility] [place] Dir: Farhat Reddy MD, [address] [facility] [address] 02 [facility] [place] Dir: Milton Arevalo MD, [address] [facility] [address] For inquiries regarding HPV test results, the physician may contact Lab [facility]: [phone] . 21 1 APTIMA SWAB; 1 AFFIRM SWAB 22 [facility] [address] [phone] 23 [facility] [address] [phone] 24 Acceptable specimens for this test are male urethral swab, endocervical swab and liquid based pap specimens, vaginal swabs in APTIMA transports and first void urine. See online Directory of Services for test number for rectal and pharyngeal specimens. RN[facility] [address] [id number] Procedures Date Code Description Status 05/25/2015 63418 Pulse Oximetry Completed Encounters Type Date Location Provider Dx Diagnosis Office Visit 02/19/2019 Main Office Betsy Cosby N76.0 Acute vaginitis 9:15a DILLAN Santos Office Visit 11/07/2018 [facility] Office Betsy Cosby J11.89 Influenza due to 1:45p DILLAN Santos unidentified influenza virus w oth manifest Office Visit 09/26/2018 Main Office Betsy Cobsy H92.02 Otalgia, left ear 6:45p DILLAN Santos M26.602 Left temporomandibular joint disorder, unspecified Office Visit 06/03/2015 8:00a [facility] Office Milena 780.79 Malaise And [place], Afnp-C Fatigue Other 268.9 Vitamin D Deficiency Unspec 296.80 Bipolar Disorder NOS V19.8 History Family Conditions Other Office Visit 05/25/2015 11:20a [facility] Hailee Rodriguez, 461.9 Sinusitis Acute Office M.D. Unspec Office Visit 02/24/2015 3:15p [facility] Milena 782.9 Skin & Integumentary Office [place], Tissue Other Afnp-C Symptoms Office Visit 01/28/2015 9:30a [facility] Angie 616.10 Vaginitis & Office Melanie, Vulvovaginitis Afnp-C Unspec Office Visit 12/30/2014 2:15p [facility] Milena 388.71 Otalgia Otogenic Office [place], Pain Afnp-C 381.81 Eustachian Tube Dysfunction Office Visit 10/22/2014 10:40a [facility] Office Hailee Rodriguez, 079.99 Viral Infection M.D. Unspec Office Visit 10/13/2014 1:50p [facility] Office Hailee Rodriguez, V70.0 Examination M.D. General Medical Routine AT Health Care Facility 296.80 Bipolar Disorder NOS 780.79 Malaise And Fatigue Other 381.81 Eustachian Tube Dysfunction v04.81 Need For Prophylactic Vaccination & Inoculation/Influenza Office Visit 09/11/2014 8:00a [facility] Office Anh 616.10 Vaginitis & Brown, FIRST AID DIRECTOR Vulvovaginitis Unspec 611.71 Mastodynia Office Visit 05/20/2014 4:15p [facility] Office Anh 616.10 Vaginitis & Brown, FIRST AID DIRECTOR Vulvovaginitis Unspec V69.2 Sexual Behavior High Risk Office Visit 04/23/2014 4:00p [facility] Office Anh 616.10 Vaginitis & Brown, FIRST AID DIRECTOR Vulvovaginitis Unspec Office Visit 04/07/2014 2:00p Main Office Anh 465.9 URI Upper Brown, FIRST AID DIRECTOR Respiratory Infections Acute Unspec Sites Office Visit 02/19/2014 1:00p Main Office Anh 724.1 Pain Thoracic Spine Brown, FIRST AID DIRECTOR Office Visit 11/25/2013 2:00p Main Office Anh 465.9 URI Upper Brown, FIRST AID DIRECTOR Respiratory Infections Acute Unspec Sites 782.9 Skin & Integumentary Tissue Other Symptoms Office Visit 07/26/2013 8:00a [facility] Office Anh Ackerman, V72.31 Routine Wallpaper Inspector FIRST AID DIRECTOR Examination 616.10 Vaginitis & Vulvovaginitis Unspec 296.80 Bipolar Disorder NOS V25.04 Solutions Architect & Instruct In Natural Family Planning To Avoid Preg Plan of Treatment 03/07/2019 - Betsy Harjeet Santos, NPZ00.00 Encounter for general adult medical examination without abnormal findingsNew Labs:CBC Electronic (a), Ordered: Comp Metabolic, Ordered: 03/07/19Lipid Panel-[facility], Ordered: TSH (Fma/[facility]), Ordered: 03/07/19Comments:You are in excellent general health. I recommend regular physical exams with attention to good nutrition and exercise, eye exams every other year, and dental exams twice yearly. Goals:2 fresh fruits daily3 helpings of fresh green and multicolored vegetablesEat from the whole color spectrum. 40-60 Oz water dailyMOVE YOUR BODY. Bodies were made to be moved. exercise 30 minutes at least 4-5 times julklmI76.9 Anemia, unspecifiedNew Labs:Ferritin (a/[facility]), Ordered: B12 ([facility]), Ordered: 03/07/19R53.83 Other fatigueComments:* eat real food that is home cooked and based on fruits, vegetables, and whole grains as much as possible. Try to keep portion sizes small but eat every 2-3 hours* keep a consistent bedtime. Not everyone thrives on 8 hours of sleep; try to leave yourself time for 8.5 or 9 hours of sleep* (this is a hard one, but SO IMPORTANT) get regular exercise. If not every day then try for every other day. A walk, shoveling, yoga at home, anything that helps you move your body for a sustained period of time* adda vitamin D supplement every day 1000 to 2000iu daily (we are all somewhat deficient at this latitude)* try out a light box -- usually people put them on for about 20 minutes at an indirect angle earlyin the morning. All the darkness at this time of year can really be [id number] Vitamin D deficiency, unspecifiedNew Labs:Vitamin D, 25Hydroxy(Fma/LC, Ordered: 03/07/19AllComments:1. Patient has been queried about patient's goals/ preferences and functional/lifestyle goals at relevant visits. If relevant, describe: Has been discussed, noted above2. Treatment goals as explainedto the patient: see above3. Are there barriers to meeting treatment goals? Yes If Yes, please describe: Barriers include possible insurance limits, disease process, and difficulty with lifestyle changes4. Self-Management goals as described to the patient: Yes, see above As always, we strongly encourage a healthy diet and making physical activity a part of your every day life. If you have questions about how or where to start, please contact the office.
[2019-03-16 04:02] LABS: TSH (Thyroid Stimulating Horm) 0.77 mcIU/mL (0.34-5.60)
[2019-03-16] MEDS ORDERED: Ondansetron INJ* 2 MG/ML VIAL IV ONE (04:52)
[2019-03-16] MEDS ORDERED: Al Hydrox/Mg Hydrox/Simet LIQ* 30 ML UDC PO PRN (08:55)
[2019-03-16] MEDS ORDERED: Acetaminophen TAB* 325 MG PO PRN (08:55)
[2019-03-16] MEDS: ValACYclovir (*) 500 MG TAB PO SCH (09:20)
[2019-03-16] MEDS: Clindamycin CAP* 150 MG PO SCH ×3 (09:20→20:04)
[2019-03-16] MEDS: Vitamin THERAPEUTIC TAB PO SCH (09:21)
[2019-03-16] MEDS: Escitalopram * 5 MG TAB PO SCH (20:04)
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
[2019-03-17 02:32] LABS: Urine Appearance Clear; Urine Bilirubin Negative (Negative); Urine Blood Negative (Negative); Urine Color Straw; Urine Glucose Negative (Negative); Urine Ketones Trace (Negative); Urine Nitrite Negative (Negative); Urine Protein Negative (Negative); Urine Specific Gravity 1.006 (1.010-1.030); Urine Urobilinogen Negative (Negative)
[2019-03-17 02:48] LABS: Urine Benzodiazepine Screen None Detected (None Detect); Urine Opiates Screen None Detected (None Detect)
[2019-03-17 06:20] LABS: HDL Cholesterol 71.6 mg/dL
[2019-03-17] MEDS: Vitamin THERAPEUTIC TAB PO SCH (08:32)
[2019-03-17] MEDS: Escitalopram * 5 MG TAB PO SCH (08:33)
[2019-03-17] MEDS: Cholecalciferol TAB* 1000 UNITS PO SCH (08:33)
[2019-03-17] MEDS: ValACYclovir (*) 500 MG TAB PO SCH (08:36)
[2019-03-17] MEDS: Clindamycin CAP* 150 MG PO SCH ×3 (08:36→20:21)
[2019-03-18] MEDS: Cholecalciferol TAB* 1000 UNITS PO SCH (08:52)
[2019-03-18] MEDS: Clindamycin CAP* 150 MG PO SCH ×3 (08:52→21:06)
[2019-03-18] MEDS: Escitalopram * 5 MG TAB PO SCH (08:52)
[2019-03-18] MEDS: ValACYclovir (*) 500 MG TAB PO SCH (08:53)
[2019-03-18] MEDS: Vitamin THERAPEUTIC TAB PO SCH (08:54)
--- NOTE | 2019-03-18 13:10 | PN ---
Subjective - Subjective Date of Service: 03/18/19 Service Type: [id number] Hosp care 15 min low complexity Subjective: Lorraine remains depressed but is still denying further suicidal thoughts and is grateful to be alive. She took the difficult step this morning of calling her parents in [place] to notify them of the suicide attempt and her subsequent hospitalization. "I don't want them to come here to [place] because if that happens I'm going to be more worried about them than I am with myself, and I need to make myself the priority right now." Lorraine has also been talking to her sister in [place] and boyfriend in [place], who are excellent sources of support. "My sister's been through this...she has anxiety and depression too." So far she is participating nicely in groups and milieu activities and seems well-related to peers. Objective - General Observations Appearance: Neat, Well Groomed Appears Stated Age: Yes Stature: WNL Posture: WNL Eye Contact: Average Behavior/Activity: WNL - Interaction Observations Attitude Towards Examiner: Cooperative Stated Mood: Dysphoric Affect: Restricted Speech Pattern/Tone: Clear, Appropriate, Normal Volume Thought Process: Coherent Perception: WNL Thought Content: WNL Hallucination Type: None Delusion Type: None - Cognitive Function Orientation: A&O x 4 Level of Consciousness: Awake, Alert, Appropriate Cognition: WNL Estimated Intelligence: Normal Insight: WNL Judgment Within Normal Limits: Yes - Medication Compliance Cooperative with Inpatient Medication Regimen: Yes - Group Participation Participates in Group Activities: Yes Assessment - Assessment Merits Inpatient Hospitalization: For Immediate Safety, For Stabilization Inpatient DSM-V Dx: F33.2 Clinical Impression: 33 y.o. engaged, white female [employer] employee with a history of recurrent depression and two prior suicide attempts arrives via ambulance following a premeditated suicide attempt in which she brought a razor to work and cut herself several times, also taking between 15 and 20 Excedrin tablets. BSU: Problem List - Patient Problems (1) MDD (major depressive disorder), recurrent episode, severe Current Visit: Yes Status: Acute Priority: High Code(s): F33.2 - MAJOR DEPRESSV DISORDER, RECURRENT SEVERE W/O PSYCH FEATURES SNOMED Code(s): 238487438543 Plan - Plan Treatment Plan: Name: LORRAINE ORTEGA Birthdate: 1985 [id number] We have started a trial of escitalopram 5mg PO qday. The patient has significant occupational stressors and has been in contact with the [facility] office seeking accommodations at work to reduce those burdens. Continue to treat on the inpatient service. Continued Medication Management: Start Medication Medications: Current Medications Acetaminophen (Tylenol Tab*) 650 mg PO Q4H PRN PRN Reason: PAIN or TEMP > 101 F Al Hydrox/Mg Hydrox/Simethicone (Maalox Plus*) 30 ml PO Q4H PRN PRN Reason: INDIGESTION Cholecalciferol (Vitamin D Tab*) 2,000 units PO DAILY [facility] Last Admin: 03/18/19 08:52 Dose: 2,000 units Clindamycin HCl (Cleocin Cap*) 300 mg PO TID [facility] Last Admin: 03/18/19 08:52 Dose: 300 mg Escitalopram Oxalate (Lexapro *) 5 mg PO DAILY [facility] Last Admin: 03/18/19 08:52 Dose: 5 mg Valacyclovir HCl (Valtrex 500 Mg (*)) 500 mg PO DAILY [facility] Last Admin: 03/18/19 08:53 Dose: 500 mg - Discharge Plan Discharge Plan: Inpatient Hospitalization Lab Results - Lab Results Lab Results: 03/16/19 03/16/19 03/16/19 03:06 03:06 03:06 WBC 11.2 H RBC 4.09 Hgb 11.8 L Hct 36 MCV 88 MCH 29 MCHC 33 RDW 12 Plt Count 243 MPV 8.6 Neut % (Auto) 89.7 Lymph % (Auto) 7.6 Norman % (Auto) 2.4 Eos % (Auto) 0.0 Baso % (Auto) 0.3 Absolute Neuts (auto) 10.1 H Absolute Lymphs (auto) 0.9 L Absolute Monos (auto) 0.3 Absolute Eos (auto) 0.0 Absolute Basos (auto) 0.0 Absolute Nucleated RBC 0.0 Nucleated RBC % 0.0 Sodium 136 Potassium 3.3 L Chloride 104 Carbon Dioxide 20 L Anion Gap 12 H BUN 7 Creatinine 0.68 Est GFR ( Amer) 119.8 Est GFR (Non-Af Amer) 99.0 BUN/Creatinine Ratio 10.3 Glucose 137 H Hemoglobin A1c Calcium 7.9 L Total Bilirubin 0.90 AST 15 ALT 11 Alkaline Phosphatase 26 L Total Protein 6.2 L Albumin 4.0 Globulin 2.2 Albumin/Globulin Ratio 1.8 Triglycerides Cholesterol LDL Cholesterol HDL Cholesterol TSH 0.77 Beta HCG, Quant < 0.60 Urine Color Urine Appearance Urine pH Ur Specific Yampa Urine Protein Urine Ketones Urine Blood Urine Nitrate Urine Bilirubin Urine Urobilinogen Ur Leukocyte Esterase Urine Glucose Salicylates 26.20 Urine Opiates Screen Acetaminophen 43 Ur Barbiturates Screen Ur Phencyclidine Scrn Ur Amphetamines Screen U Benzodiazepines Scrn Urine Cocaine Screen U Cannabinoids Screen Serum Alcohol < 10 Blood Type A Positive Antibody Screen Negative 03/17/19 03/17/19 03/17/19 02:10 02:10 05:55 WBC RBC Hgb Hct MCV MCH MCHC RDW Plt Count MPV Neut % (Auto) Lymph % (Auto) Norman % (Auto) Eos % (Auto) Baso % (Auto) Absolute Neuts (auto) Absolute Lymphs (auto) Absolute Monos (auto) Absolute Eos (auto) Absolute Basos (auto) Absolute Nucleated RBC Nucleated RBC % Sodium Potassium Chloride Carbon Dioxide Anion Gap BUN Creatinine Est GFR ( Amer) Est GFR (Non-Af Amer) BUN/Creatinine Ratio Glucose Hemoglobin A1c Calcium Total Bilirubin AST ALT Alkaline Phosphatase Total Protein Albumin Globulin Albumin/Globulin Ratio Triglycerides 48 Cholesterol 135 LDL Cholesterol 54 HDL Cholesterol 71.6 TSH Beta HCG, Quant Urine Color Straw Urine Appearance Clear Urine pH 5.0 Ur Specific Yampa 1.006 L Urine Protein Negative Urine Ketones Trace A Urine Blood Negative Urine Nitrate Negative Urine Bilirubin Negative Urine Urobilinogen Negative Ur Leukocyte Esterase Negative Urine Glucose Negative Salicylates Urine Opiates Screen None detected Acetaminophen Ur Barbiturates Screen None detected Ur Phencyclidine Scrn None detected Ur Amphetamines Screen None detected U Benzodiazepines Scrn None detected Urine Cocaine Screen None detected U Cannabinoids Screen None detected Serum Alcohol Blood Type Antibody Screen 03/17/19 05:55 WBC RBC Hgb Hct MCV MCH MCHC RDW Plt Count MPV Neut % (Auto) Lymph % (Auto) Norman % (Auto) Eos % (Auto) Baso % (Auto) Absolute Neuts (auto) Absolute Lymphs (auto) Absolute Monos (auto) Absolute Eos (auto) Absolute Basos (auto) Absolute Nucleated RBC Nucleated RBC % Sodium Potassium Chloride Carbon Dioxide Anion Gap BUN Creatinine Est GFR ( Amer) Est GFR (Non-Af Amer) BUN/Creatinine Ratio Glucose Hemoglobin A1c 5.4 Calcium Total Bilirubin AST ALT Alkaline Phosphatase Total Protein Albumin Globulin Albumin/Globulin Ratio Triglycerides Cholesterol LDL Cholesterol HDL Cholesterol TSH Beta HCG, Quant Urine Color Urine Appearance Urine pH Ur Specific Yampa Urine Protein Urine Ketones Urine Blood Urine Nitrate Urine Bilirubin Urine Urobilinogen Ur Leukocyte Esterase Urine Glucose Salicylates Urine Opiates Screen Acetaminophen Ur Barbiturates Screen Ur Phencyclidine Scrn Ur Amphetamines Screen U Benzodiazepines Scrn Urine Cocaine Screen U Cannabinoids Screen Serum Alcohol Blood Type Antibody Screen
[2019-03-19] MEDS: Escitalopram * 5 MG TAB PO SCH (08:32)
[2019-03-19] MEDS: Clindamycin CAP* 150 MG PO SCH ×3 (08:32→21:03)
[2019-03-19] MEDS: Cholecalciferol TAB* 1000 UNITS PO SCH (08:33)
[2019-03-19] MEDS: ValACYclovir (*) 500 MG TAB PO SCH (08:33)
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
[2019-03-20] MEDS: Cholecalciferol TAB* 1000 UNITS PO SCH (08:47)
[2019-03-20] MEDS: ValACYclovir (*) 500 MG TAB PO SCH (08:47)
[2019-03-20] MEDS: Clindamycin CAP* 150 MG PO SCH ×3 (08:47→20:50)
[2019-03-20] MEDS: Escitalopram * 5 MG TAB PO SCH (08:47)
--- NOTE | 2019-03-20 10:48 | PN ---
Subjective - Subjective Date of Service: 03/20/19 Service Type: [id number] Hosp care 15 min low complexity Subjective: Lorraine is feeling fatigued from not sleeping well. This was a problem even before admission and she is open to trying some Benadryl for it. She is tolerating the escitalopram well. The patient continues to deny SI. She has several things to look forward to after discharge, including a trip with several friends to a [place] in [place] on March 29, a visit from her sister the weekend after, and a visit from her fiance for the week of April 11. The patient is totally adherent with groups and milieu activities. Objective - General Observations Appearance: Well Groomed Appears Stated Age: Yes Stature: WNL Posture: WNL Eye Contact: Average Behavior/Activity: WNL - Interaction Observations Attitude Towards Examiner: Cooperative Stated Mood: Dysphoric Affect: Restricted Speech Pattern/Tone: Clear, Appropriate, Normal Volume Thought Process: Coherent Perception: WNL Thought Content: WNL Hallucination Type: None Delusion Type: None - Cognitive Function Orientation: A&O x 4 Level of Consciousness: Awake, Alert, Appropriate Cognition: WNL Estimated Intelligence: Normal Insight: WNL Judgment Within Normal Limits: Yes - Medication Compliance Cooperative with Inpatient Medication Regimen: Yes - Group Participation Participates in Group Activities: Yes Assessment - Assessment Merits Inpatient Hospitalization: For Immediate Safety, For Stabilization Inpatient DSM-V Dx: F33.2 Clinical Impression: 33 y.o. engaged, white female [employer] employee with a history of recurrent depression and two prior suicide attempts arrives via ambulance following a premeditated suicide attempt in which she brought a razor to work and cut herself several times, also taking between 15 and 20 Excedrin tablets. BSU: Problem List - Patient Problems (1) MDD (major depressive disorder), recurrent episode, severe Current Visit: Yes Status: Acute Priority: High Code(s): F33.2 - MAJOR DEPRESSV DISORDER, RECURRENT SEVERE W/O PSYCH FEATURES SNOMED Code(s): 016640090235 Plan - Plan Treatment Plan: Name: LORRAINE ORTEGA Birthdate: 1985 [id number] We have started a trial of escitalopram 5mg PO qday, which we will increase to 10mg. The patient has significant occupational stressors and has been in contact with the [facility] office seeking accommodations at work to reduce those burdens. Benadryl 50m prn for insomnia. Continue to treat on the inpatient service. Continued Medication Management: Start Medication Medications: Current Medications Acetaminophen (Tylenol Tab*) 650 mg PO Q4H PRN PRN Reason: PAIN or TEMP > 101 F Al Hydrox/Mg Hydrox/Simethicone (Maalox Plus*) 30 ml PO Q4H PRN PRN Reason: INDIGESTION Cholecalciferol (Vitamin D Tab*) 2,000 units PO DAILY [facility] Last Admin: 03/20/19 08:47 Dose: 2,000 units Clindamycin HCl (Cleocin Cap*) 300 mg PO TID [facility] Last Admin: 03/20/19 08:47 Dose: 300 mg Diphenhydramine HCl (Benadryl Po*) 50 mg PO BEDTIME PRN PRN Reason: INSOMNIA Escitalopram Oxalate (Lexapro *) 10 mg PO DAILY [facility] Valacyclovir HCl (Valtrex 500 Mg (*)) 500 mg PO DAILY [facility] Last Admin: 03/20/19 08:47 Dose: 500 mg - Discharge Plan Discharge Plan: Inpatient Hospitalization
[2019-03-20] MEDS: diPHENhydraMINE PO* 50 MG PO PRN (22:41)
[2019-03-21] MEDS: Escitalopram * 10 MG TAB PO SCH (08:29)
[2019-03-21] MEDS: Clindamycin CAP* 150 MG PO SCH ×3 (08:29→22:05)
[2019-03-21] MEDS: Cholecalciferol TAB* 1000 UNITS PO SCH (08:29)
[2019-03-21] MEDS: ValACYclovir (*) 500 MG TAB PO SCH (08:30)
--- NOTE | 2019-03-21 11:30 | PN ---
Subjective - Subjective Date of Service: 03/21/19 Service Type: 27348 Hosp care 25 min moderate complexity Subjective: Lorraine is feeling better today after sleeping better last night. She did take a dose of Benadryl, which helped considerably. The patient continues to deny SI and feels ready for discharge home tomorrow, although she does express some worry about falling back into the same habits that led to this suicide attempt, namely, being passive and letting others take advantage of her. We discussed her internal thought patterns and the cognitive underpinnings of her shame and guilt, which often stop her from enforcing healthier boundaries with others. "It's definitely a voice inside myself that is always saying things like 'No, you don't deserve to have something good happen.' I live with that everyday." Lorraine is taught how to recognize negative self-talk and how to effectively talk back to it. She is tolerating escitalopram well and denies untoward effects. She is in communication with family and peers regularly. Objective - General Observations Appearance: Well Groomed Appears Stated Age: Yes Stature: WNL Posture: WNL Eye Contact: Average Behavior/Activity: WNL - Interaction Observations Attitude Towards Examiner: Cooperative Stated Mood: Euthymic Affect: Restricted Speech Pattern/Tone: Clear, Appropriate, Normal Volume Thought Process: Coherent Perception: WNL Thought Content: WNL Hallucination Type: None Delusion Type: None - Cognitive Function Orientation: A&O x 4 Level of Consciousness: Awake Cognition: WNL Estimated Intelligence: Normal Insight: WNL Judgment Within Normal Limits: Yes - Medication Compliance Cooperative with Inpatient Medication Regimen: Yes - Group Participation Participates in Group Activities: Yes Assessment - Assessment Merits Inpatient Hospitalization: Consolidate Improvements, Pending Safe DC Plan Inpatient DSM-V Dx: F33.2 Clinical Impression: 33 y.o. engaged, white female [employer] employee with a history of recurrent depression and two prior suicide attempts arrives via ambulance following a premeditated suicide attempt in which she brought a razor to work and cut herself several times, also taking between 15 and 20 Excedrin tablets. BSU: Problem List - Patient Problems (1) MDD (major depressive disorder), recurrent episode, severe Current Visit: Yes Status: Acute Priority: High Code(s): F33.2 - MAJOR DEPRESSV DISORDER, RECURRENT SEVERE W/O PSYCH FEATURES SNOMED Code(s): 072203696569 Plan - Plan Treatment Plan: Name: LORRAINE ORTEGA Birthdate: 1985 [id number] We have started a trial of escitalopram 10mg PO qday, which the patient appears to tolerate well. She has significant occupational stressors and has been in contact with the [facility] office seeking accommodations at work to reduce those burdens. Benadryl 50m prn for insomnia. [employer] tomorrow (03/22) for discharge. Continued Medication Management: Start Medication Medications: Current Medications Acetaminophen (Tylenol Tab*) 650 mg PO Q4H PRN PRN Reason: PAIN or TEMP > 101 F Al Hydrox/Mg Hydrox/Simethicone (Maalox Plus*) 30 ml PO Q4H PRN PRN Reason: INDIGESTION Cholecalciferol (Vitamin D Tab*) 2,000 units PO DAILY [facility] Last Admin: 03/21/19 08:29 Dose: 2,000 units Clindamycin HCl (Cleocin Cap*) 300 mg PO TID [facility] Last Admin: 03/21/19 08:29 Dose: 300 mg Diphenhydramine HCl (Benadryl Po*) 50 mg PO BEDTIME PRN PRN Reason: INSOMNIA Last Admin: 03/20/19 22:41 Dose: 50 mg Escitalopram Oxalate (Lexapro *) 10 mg PO DAILY [facility] Last Admin: 03/21/19 08:29 Dose: 10 mg Valacyclovir HCl (Valtrex 500 Mg (*)) 500 mg PO DAILY [facility] Last Admin: 03/21/19 08:30 Dose: 500 mg - Discharge Plan Discharge Plan: Outpatient Follow Up Outpatient Program: Private Clinician(s)
[2019-03-21] MEDS: diPHENhydraMINE PO* 50 MG PO PRN (22:50)
[2019-03-22] MEDS: Escitalopram * 10 MG TAB PO SCH (08:38)
[2019-03-22] MEDS: ValACYclovir (*) 500 MG TAB PO SCH (08:38)
[2019-03-22] MEDS: Cholecalciferol TAB* 1000 UNITS PO SCH (08:38)
[2019-03-22] MEDS: Clindamycin CAP* 150 MG PO SCH ×2 (08:38→13:54)
[2019-03-22 09:19] VITALS: BP 114/58
--- NOTE | 2019-03-22 12:01 | PN ---
BSU: Group Therapy Note - Service Type Service Type: 07800 Group Psychotherapy - Cognitive Behavioral Group Therapy ( CBT):Patient was attentive and participatory in CBT programming this morning, and remained in good behavioral control. Patient expressed positive insights regarding relevant treatment interventions and goals.
--- NOTE | 2019-03-22 13:44 | DS ---
DISCHARGE SUMMARY: DATE OF ADMISSION: 03/16/19 DATE OF DISCHARGE: 03/22/19 DISCHARGE DIAGNOSES: As follows: [place] I: Major depressive disorder, recurrent, severe, without psyc hotic features. [place] II: Deferred. CONDITION AT THE TIME OF DISCHARGE: Improved. The patient has steadfastly denied further suicidal i deations throughout this hospital stay. She has been engaged during group programming, eager to lear n more about herself, and eager to get well. She has been tolerating the initiation of antidepressant therapy and is willing to continue taking this. We have established followup appointments with a [facility] therapist as well as the patient's primary care provider for med management. Betsy has shown marke d increase in her self-awareness and has learned healthier coping strategies while here. She has don e well here and is appropriately requesting discharge to a less restricted setting. We have spoken w ith her fiance who is in agreement with the discharge plan. MENTAL STATUS EXAMINATION: At the time of discharge, the patient is a young white female with dark b rown hair and a ponytail which is braided. She is dressed in a sweater and long sleeve shirt. She i s clean, well groomed, calm, cooperative, easy to establish a rapport with. Her speech has a normal rate, tone, and volume. She makes good eye contact. Mood is euthymic with a full affect. Thought p rocess is linear, goal directed. Thought content is significant for her desire to be discharged from the hospital. She is denying suicidal or homicidal ideations. She denies auditory or visual halluc inations. Insight and judgment are fair given her willingness to follow up with outpatient treatment . Cognitively, she is awake and alert with what would appear to be an average intellect. DISCHARGE INSTRUCTIONS TO THE PATIENT: Are as follows: Part A. Medications: She is takin. Lexapro 10 mg p.o. q. daily. 2. Astepro 0.15% nasal spray inhaled nasally on a daily basis on a p.r.n. 3. She takes Flonase nasal spray 15 mcg 1 spray inhaled as needed for allergies. 4. Valacyclovir 500 mg daily as a p.r.n. for herpetic lesions. 5. She takes vitamin D3 2000 units p.o. q. daily. Part B: Diet is regular. Part C: Activities as tolerated. The patient is a nonsmoker. There are no laboratory or diagnostic studies pending at the time of discharge. Part D: Followup care: The patient has an appointment with therapist, Olivia Valdez LCSW. That ap pointment is for 03/25/19 at 3 p.m. In addition, she will follow up with primary care provid er, Dr. Hailee Rodriguez, within 2 weeks of discharge. Additionally, she will go to the walk-in urgent c are center at [facility] sometime on Monday to have her hans removed. Part E: Substance abuse followup is nonapplicable. Part F: Disposition: The patient will be going home to her apartment. HOSPITAL COURSE: Part A: Reason for admission: The patient is a 33-year-old engaged white female wi th a history of affective problems and 2 prior psychiatric inpatient hospitalizations, who arrives vi a EMS following an episode at work in which she took a razor and cut herself 5 times total and also o verdosed on between 15 and 20 [id number] Excedrin in an attempt to end her own life. The patie nt's lacerations were stapled shut and I understand that she lost a great deal of blood. She was will ing to come into the hospital on a voluntary basis for suicidal ideations. Currently on our unit, dunia ríos is expressing that she has been depressed since approximately October 2018. She feels ineffective at her job. She saw a razor in her medicine cabinet on the morning of the incident and brought it to work with her. She stated that she chose the bathroom at work because it has drainage and her blood could easily be cleaned up after her . She states that nothing felt real in the time leading u p to the suicide attempt. She believes that she cut herself sometime between 6 and 7 p.m., then over dosed on Excedrin and promptly fell asleep on the bathroom floor. At some point, she woke up in the cover marker of Monday and called 911. At the time of first evaluation, she was grateful to be al anuel and she accepted that her attempt failed. She was stating that she wanted to continue to live an d get treated for her depression. 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 This occurred sometime in September 2018, and since then, she has been doing both his eddie b and hers. The MRI suite at [place] is quite busy and she is the only person qualified to do the wo rk that she does. An additional stressor is that she is living alone and has limited psychosocial [place] in the [place] area. Both her parents, her fiance, and her older sister all live out of state. Symptomatically, the patient was endorsing several neurovegetative symptoms including difficulty fal ling and staying asleep, anhedonia, worthlessness, guilt, decreased energy, poor concentration, lack of appetite, psychomotor retardation, and suicidal ideations. She denied homicidality. She denied an y significant history of psychosis. Part B: Psychiatric treatment rendered: The patient was admitted to the [facility] where she was placed on q.15 minute checks for her own safety. These were reduced to q.30 minute c hecks when she continued to endorse a resolution of suicidal ideations. The patient was an active co ntributor and participant in group activities here on the unit. She seemed very motivated to get wel l. We did feel like a gentle antidepressant was warranted and started her on a trial of low-dose esc italopram which was gradually tapered from 5 to 10 mg. She seemed to tolerate this well. In [facility], she received p.r.n. Benadryl on an as- needed basis for insomnia. The patient's parents, [facility], and her fiance were all actively engaged with her during her time here, although she requested th at they not visit stating that if they were to come that she would worry more about them than herself and she wanted to place the priority on her own needs. She was, however, visited by several friends in the area who agreed to stay with the patient at the time following discharge to make sure that dunia ríos transitioned well from the unit back to being in her apartment. We had some contact with [facility]'s employee assistance program and they made it clear that they would make some accommodatio ns for the patient to improve her occupational situation. We are recommending that she take several weeks off from work in order to reduce her stress and to improve her mood before reengaging in work. The patient has a great deal of negative self talk which tends to be punitive and scrutinizing and usha ríos gave her some cognitive techniques to talk back to these and to have a less distorted view of herse lf. In addition, the patient received group therapies around several issues including improved copin g mechanisms and doing a better job with managing her time. We were able to refer her successfully t o a therapist in the community that has opening. We shall be starting with that provider on 03/25/19 . She feels comfortable having her outpatient primary care provider manage her antidepressant medica tion. At this point, the patient has been safe for the past week and we see no barriers to her getti ng effective treatment in the outpatient setting. She is requesting discharge and we see no reason t o keep her any further against her will. [id number]/[facility] #: [id number]
== END 2019-03-22 15:00 | disposition home or self-care (01) | DRG 751 ==
LOC: ED 02:40 → BSU 06:20
PROVIDERS: ADMIT Psychiatry & Neurology Psychiatry; ATTEND Psychiatry & Neurology Psychiatry
PROC: 0HQEXZZ Repair Left Lower Arm Skin, External Approach (ICD-10-PCS; 2019-03-16)
PROC: 0HQDXZZ Repair Right Lower Arm Skin, External Approach (ICD-10-PCS; 2019-03-16)
PROC: GZHZZZZ Group Psychotherapy (ICD-10-PCS; principal; 2019-03-22)
DX: F33.2 Major depressive disorder, recurrent severe without psychotic features (principal); T39.1X2A Poisoning by 4-Aminophenol derivatives, intentional self-harm, initial encounter; F41.9 Anxiety disorder, unspecified; E61.1 Iron deficiency; F41.1 Generalized anxiety disorder; S51.812A Laceration without foreign body of left forearm, initial encounter; S51.811A Laceration without foreign body of right forearm, initial encounter; X78.8XXA Intentional self-harm by other sharp object, initial encounter; Y92.59 Other trade areas as the place of occurrence of the external cause; Z91.5 Personal history of self-harm; Z72.89 Other problems related to lifestyle; Z87.891 Personal history of nicotine dependence; Z91.410 Personal history of adult physical and sexual abuse; Z88.1 Allergy status to other antibiotic agents; Z88.7 Allergy status to serum and vaccine; Z81.8 Family history of other mental and behavioral disorders; Z81.1 Family history of alcohol abuse and dependence; Z83.3 Family history of diabetes mellitus
CPT/HCPCS: 36415; 80053; 80061; 80307; 80320; 80329; 81003; 83036; 84443; 84702; 85025; 86850; 86900; 86901; 90715; 90853; 93005; 99222; 99231; 99232; 99238; 99285; A9270-GY; G0480; J2001; J2405

== ENCOUNTER 2019-03-25 12:02 | Emergency (ER) | payer BC ==
--- NOTE | 2019-03-25 12:57 | UC ---
Skin Complaint HPI - HPI Summary HPI Summary: 33 yo female presents for staple removal. She was in the ED on 03/16 for suicide attempt and self inflicted lacerations to her b/l forearms. The wounds were stapled. 15 hans to left arm and 9 hans to right arm. She was admitted to mental health. Today she reports that she is doing well, but is still sad. She is taking her lexapro as prescribed from BSU. She denies any intention of wanting to hurt herself or others. No SI/HI at this time. She has an appt with her therapist later today and an appt with her PCP later this week for rechecks. Regarding her hans she has had no increased pain, drainage, swelling, or redness. No fevers. - History of Current Complaint Time Seen by Provider: 03/25/19 12:57 Stated Complaint: STAPLE REMOVAL Hx Obtained From: Patient Hx Last Menstrual Period: 08/02/18 Onset/Duration: Sudden Onset Current Severity: None - Allergy/Home Medications Allergies/Adverse Reactions: Allergies Allergy/AdvReac Type Severity Reaction Status Date / Time cefaclor [From [facility]] Allergy Hives Verified 03/25/19 13:08 PMH/Surg Hx/FS Hx/Imm Hx Psychological History: Anxiety, Depression - Surgical History Surgical History: Yes Surgery Procedure, Year, and Place: wisdom tooth removal - Family History Known Family History: Positive: Diabetes - Social History Occupation: Employed Full-time Lives: With Family Alcohol Use: Occasionally Substance Use Type: None Smoking Status (MU): Former Smoker - Immunization History Most Recent Influenza Vaccination: n/a Most Recent Pneumonia Vaccination: n/a Review of Systems All Other Systems Reviewed And Are Negative: Yes Constitutional: Positive: Negative Skin: Positive: Other - [place] in b/l forearms Respiratory: Positive: Negative Cardiovascular: Positive: Negative Neurovascular: Positive: Negative Musculoskeletal: Positive: Negative Neurological: Positive: Negative Psychological: Positive: Negative Physical Exam - Summary Physical Exam Summary: GENERAL: NAD. WDWN. No pain distress. SKIN: 3 lacerations to left forearm with a total of [address] Wounds well healed and approximated. No erythema, edema, drainage, or tenderness. RIGHT FOREARM: 2 lacerations with a total of [address] Wounds well healed and approximated. No erythema, edema, drainage, or tenderness. CHEST: No accessory muscle use. Breathing comfortably and in no distress. CV: Pulses intact. Cap refill <2seconds NEURO: Alert. PSYCH: Age appropriate behavior. Triage Information Reviewed: Yes Vital Signs: Vital Signs: Temp Pulse Resp BP Pulse Ox 98.4 F 84 18 106/65 97 03/25/19 13:03 03/25/19 13:03 03/25/19 13:03 03/25/19 13:03 03/25/19 13:03 Vital Signs Reviewed: Yes Course/Dx - Course Course Of Treatment: 15 hans removed from left forearm and 9 hans removed from right forearm. Pt tolerated well. Steri stripes applied. Encouraged to keep her f/u appts as scheduled. - Diagnoses Provider Diagnosis: Removal of staple Discharge - Sign-Out/Discharge Documenting (check all that apply): Patient Departure All imaging exams completed and their final reports reviewed: No Studies - Discharge Plan Condition: Stable Disposition: HOME Patient Education Materials: Stitches Removal (ED) Referrals: Hailee Rodriguez MD [Primary Care Provider] - Additional Instructions: If you develop a fever, shortness of breath, chest pain, new or worsening symptoms - please call your PCP or go to the ED immediately. Please apply a bandage to the left arm wounds until more completely healed ( likely 5-7 days) Please keep your follow up appointments this week - Billing Disposition and Condition Condition: STABLE Disposition: Home
[2019-03-25 13:08] VITALS: BP 106/65
== END 2019-03-25 13:35 | disposition home or self-care (01) ==
LOC: UCEAST 12:02
DX: F41.9 Anxiety disorder, unspecified (principal); F32.9 Major depressive disorder, single episode, unspecified; Z48.02 Encounter for removal of sutures; Z87.891 Personal history of nicotine dependence
CPT/HCPCS: 99213; G0463